=== PATIENT | female | born 1960 | race Caucasian/White ===

== ENCOUNTER 2018-05-25 16:42 | Emergency (ER) | payer SELFPAY ==
[2018-05-25 17:04] VITALS: TEMP 98.4; BMI 29.2
[2018-05-25] MEDS ORDERED: ERYTHROMYCIN 0.5% OPHTHALMIC OINTMENT 3.5 GM TUBE OS ONE (17:44)
[2018-05-25] MEDS ORDERED: ERYTHROMYCIN 0.5% OPHTHALMIC OINTMENT 3.5 GM TUBE ONE (17:48)
[2018-05-25] MEDS ORDERED: amLODIPine BESYLATE 10 MG TABLET (FP) PO ONE (17:50)
[2018-05-25] MEDS ORDERED: HYDROCHLOROTHIAZIDE 25 MG TABLET (FP) PO ONE (17:50)
--- NOTE | 2018-05-25 17:50 | PDOC ---
History of Present Illness - General Chief Complaint: Eye Problem Stated Complaint: LT EYE PROBLEM Time Seen by Provider: 05/25/18 17:20 Past History - Travel Traveled outside of the country in the last 30 days: No Close contact w/someone who was outside of country & ill: No - Past Medical History Allergies/Adverse Reactions: Allergies Allergy/AdvReac Type Severity Reaction Status Date / Time No Known Allergies Allergy Verified 08/29/12 13:36 Home Medications: Ambulatory Orders Amlodipine Besylate [Norvasc -] 10 mg PO DAILY 05/25/18 Hydrochlorothiazide [Hctz -] 50 mg PO DAILY 05/25/18 COPD: No HTN: Yes - Surgical History Cholecystectomy: Yes - Immunization History Immunization Up to Date: No - Suicide/Smoking/Psychosocial Hx Smoking Status: Yes Smoking History: Unknown if ever smoked Have you smoked in the past 12 months: No Number of Cigarettes Smoked Daily: 0 Information on smoking cessation initiated: No Hx Alcohol Use: No Drug/Substance Use Hx: No Review of Systems - Review of Systems Able to Perform ROS?: Yes Comments:: 05/25/18 18:57 CONSTITUTIONAL: Absent: fever, chills, diaphoresis, generalized weakness, malaise, loss of appetite HEENT: Present: L eye pain Absent: rhinorrhea, nasal congestion, throat pain, throat swelling, difficulty swallowing, mouth swelling, ear pain, eye pain, visual Changes CARDIOVASCULAR: Absent: chest pain, loss of consciousness, palpitations, irregular heart rate, peripheral edema RESPIRATORY: Absent: cough, shortness of breath, dyspnea with exertion, orthopnea, wheezing, stridor, hemoptysis SKIN: Absent: rash, itching, pallor NEUROLOGIC: Absent: headache, focal weakness or paresthesias, dizziness, unsteady gait, seizure, mental status changes, bladder or bowel incontinence PSYCHIATRIC: Absent: anxiety, depression, suicidal or homicidal ideation, hallucinations. Is the patient limited Yakut proficient: No *Physical Exam - Vital Signs Last Vital Signs Temp Pulse Resp BP Pulse Ox 98.4 F 70 16 199/103 H 98 05/25/18 16:57 05/25/18 16:57 05/25/18 16:57 05/25/18 16:57 05/25/18 16:57 - Physical Exam Comments: 05/25/18 18:57 GENERAL: Well developed, well nourished. Awake and alert. No acute distress. HEENT: Normocephalic, atraumatic. PERRLA, EOMI. No conjunctival pallor. Sclera are non- icteric. Moist mucous membranes. Oropharynx is clear. L eye is injected and tearing. Gross uptake of the flourscien stain over the iris and pupil NECK: Supple. Full ROM. No JVD. Carotid pulses 2+ and symmetric, without bruits. No thyromegaly. No lymphadenopathy. CARDIOVASCULAR: Regular rate and rhythm. No murmurs, rubs, or gallops. Distal pulses are 2+ and symmetric. PULMONARY: No evidence of respiratory distress. Lungs clear to auscultation bilaterally. No wheezing, rales or rhonchi. SKIN: Warm and dry. Normal capillary refill. No rashes. No jaundice. NEUROLOGICAL: Alert, awake, appropriate. Cranial nerves 2-12 intact. No deficits to light touch and temperature in face, upper extremities and lower extremities. No motor deficits in the in face, upper extremities and lower extremities. Normoreflexic in the upper and lower extremities. Normal speech. Toes are down- going bilaterally. Gait is normal without ataxia. PSYCHIATRIC: Cooperative. Good eye contact. Appropriate mood and affect. Medical Decision Making - Medical Decision Making 05/25/18 18:58 The patient is a 58-year-old female with past medical history of hypertension, off her medication for 4 months, who presents to the ER today for left eye pain starting 3 days ago. Patient states she was at work when she turned on a fan that blows hot air. She states that as soon as she turned on the fat immediately blew hot air into her left eye. She states that since then the eye has been red and painful. Denies floaters, spots, blurry vision. She does admit to photophobia. A/P: Corneal abrasion, hypertension Of note patient's triage blood pressure was 199/103 On exam the left eye is injected. Fluorescein stain with gross uptake to the iris and pupil suggestive of a corneal abrasion. Suspect that the is a first-degree burn of the eye. Erythromycin ointment applied. Home blood pressure medication of amlodipine 10 mg and hydrochlorothiazide 25 mg given Blood pressure was repeated 40 minutes after administration of medication. No change in blood pressure reading. Given elevated blood pressure, patient up triaged to the main ER for further evaluation and blood pressure checks. Endorsed to Dr. Abad in charge nurse Riccardo. *DC/Admit/Observation/Transfer Diagnosis at time of Disposition: Corneal abrasion Qualifiers: Encounter type: initial encounter Laterality: left Qualified Code(s): S05.02XA - Injury of conjunctiva and corneal abrasion without foreign body, left eye, initial encounter HTN (hypertension) Qualifiers: Hypertension type: unspecified Qualified Code(s): I10 - Essential (primary) hypertension - Discharge Dispostion Condition at time of disposition: Stable - Referrals - Patient Instructions - Post Discharge Activity
[2018-05-25] MEDS ORDERED: amLODIPine BESYLATE 5 MG TABLET (FP) ONE (17:58)
[2018-05-25] MEDS ORDERED: HYDROCHLOROTHIAZIDE 25 MG TABLET (FP) ONE (17:58)
[2018-05-25 18:54] VITALS: BP 201/102; PULSE 65
--- NOTE | 2018-05-25 19:46 | PDOC ---
History of Present Illness - General Chief Complaint: Eye Problem Stated Complaint: LT EYE PROBLEM Time Seen by Provider: 05/25/18 17:20 History Source: Patient Exam Limitations: No Limitations - History of Present Illness Initial Comments: 05/25/18 19:44 Pt is a 58yo F with PMH of HTN presenting to ED with complaints of L eye pain. Pt states she was walking and turned on a fan and the fan blew hot air into her L eye. She has had pain and slight photophobia. Pt was seen in [facility] and was found to have corneal abrasion and HTN. Pt has been without insurance for a few years and has not taken her BP meds (amlodipine and hctz) since December. Denies LANDEROS, chest pain, sob, blurry vision, changes in vision, neck pain, back pain. Pt was given BP meds in [facility]. Past History - Past Medical History Allergies/Adverse Reactions: Allergies Allergy/AdvReac Type Severity Reaction Status Date / Time No Known Allergies Allergy Verified 08/29/12 13:36 Home Medications: Ambulatory Orders Amlodipine Besylate [Norvasc -] 10 mg PO DAILY 05/25/18 Amlodipine Besylate [Norvasc -] 10 mg PO DAILY #90 tablet 05/25/18 Hydrochlorothiazide [Hctz -] 25 mg PO DAILY #90 tablet 05/25/18 Hydrochlorothiazide [Hctz -] 50 mg PO DAILY 05/25/18 COPD: No HTN: Yes - Surgical History Cholecystectomy: Yes - Immunization History Immunization Up to Date: No - Suicide/Smoking/Psychosocial Hx Smoking Status: Yes Smoking History: Unknown if ever smoked Have you smoked in the past 12 months: No Number of Cigarettes Smoked Daily: 0 Information on smoking cessation initiated: No Hx Alcohol Use: No Drug/Substance Use Hx: No Review of Systems - Review of Systems Is the patient limited [place]ican proficient: No Constitutional: No: Symptoms Reported HEENTM: Yes: See HPI, Eye Pain, Tearing. No: Blurred Vision, Recent change in vision, Double Vision Respiratory: No: Cough, Shortness of Breath Cardiac (ROS): No: Chest Pain, Lightheadedness, Palpitations, Syncope ABD/GI: No: Constipated, Diarrhea, Nausea, Vomiting, Abdominal cramping : No: Symptoms Reported Musculoskeletal: No: Symptoms Reported Integumentary: No: Symptoms Reported Neurological: No: Headache, Numbness, Tingling, Tremors *Physical Exam - Vital Signs Last Vital Signs Temp Pulse Resp BP Pulse Ox 98.4 F 65 16 201/102 H 98 05/25/18 16:57 05/25/18 18:53 05/25/18 16:57 05/25/18 18:53 05/25/18 16:57 - Physical Exam General Appearance: Yes: Nourished, Appropriately Dressed. No: Apparent Distress HEENT: positive: EOMI, DANIEL, Other (L eye erythema. OD 20/50, OS 20/70. ). negative: Photophobia, Rhinorrhea Neck: positive: Trachea midline, Supple. negative: Lymphadenopathy (R), Lymphadenopathy (L) Respiratory/Chest: positive: Lungs Clear, Normal Breath Sounds Cardiovascular: positive: Regular Rhythm, Regular Rate. negative: Edema, JVD, Murmur Vascular Pulses: Carotid (R): 2+, Carotid (L): 2+, Dorsalis-Pedis (R): 2+, Doralis-Pedis (L): 2+ Gastrointestinal/Abdominal: positive: Normal Bowel Sounds, Soft. negative: Tender Musculoskeletal: negative: CVA Tenderness Extremity: positive: Normal Capillary Refill. negative: Pedal Edema, Swelling, Calf Tenderness Integumentary: positive: Normal Color, Dry, Warm Neurologic: positive: benefits director II-XII NML intact, Fully Oriented, Alert, Normal Mood/ Affect, Normal Response, Motor Strength 5/5 ED Treatment Course - Medications Given in the ED: ED Medications Discontinued Medications Generic Name Dose Route Start Last Admin Trade Name Freq PRN Reason Stop Dose Admin Amlodipine Besylate 10 mg 05/25/18 17:50 05/25/18 18:11 Norvasc - PO 05/25/18 17:51 10 mg ONCE ONE Administration Erythromycin 1 applic 05/25/18 17:44 05/25/18 17:50 Erythromycin 0.5% Eye Ointment OS 05/25/18 17:45 1 applic ONCE ONE Administration Hydrochlorothiazide 25 mg 05/25/18 17:50 05/25/18 18:11 Hctz - PO 05/25/18 17:51 25 mg ONCE ONE Administration Medical Decision Making - Medical Decision Making 05/25/18 20:41 Pt is a 58yo F with PMH of HTN presenting to ED with complaints of L eye pain. Pt states she was walking and turned on a fan and the fan blew hot air into her L eye. She has had pain and slight photophobia. Pt was seen in [facility] and was found to have corneal abrasion and HTN. Pt has been without insurance for a few years and has not taken her BP meds (amlodipine and hctz) since December. Denies LANDEROS, chest pain, sob, blurry vision, changes in vision, neck pain, back pain. Pt was given BP meds in [facility]. Pt sent to main ED from [facility] due to elevated bp. Pt was given erythromycin ointment for eyes. Given Norvasc and HCTZ in [facility]. Rpt bp 199 systolic. Pt asymptomatic: no LANDEROS, no cp, no sob, no swelling. Pt has been off of meds since 12/2017. Asymptomatic. Does not need labs at this time. maybe elevated since december. Pt has insurance now. Rx for norvasc and hctz sent to pharmacy. Pt given gentamycin ointment for home. Given return precautions. Pt understands. *DC/Admit/Observation/Transfer Diagnosis at time of Disposition: Corneal abrasion Qualifiers: Encounter type: initial encounter Laterality: left Qualified Code(s): S05.02XA - Injury of conjunctiva and corneal abrasion without foreign body, left eye, initial encounter HTN (hypertension) Qualifiers: Hypertension type: unspecified Qualified Code(s): I10 - Essential (primary) hypertension - Discharge Dispostion Condition at time of disposition: Stable - Prescriptions Prescriptions: Amlodipine Besylate [Norvasc -] 10 mg PO DAILY #90 tablet Hydrochlorothiazide [Hctz -] 25 mg PO DAILY #90 tablet - Referrals - Patient Instructions Printed Discharge Instructions: DI for Corneal Abrasion, DI for High Blood Pressure Additional Instructions: You were seen in the emergency room today for eye pain. You have a cornea abrasion. Please wear sunglasses to protect your eyes from the sun. An antibiotic was given to you here in the emergency room. Apply it to the left eye three times per day for 5-7 days. I recommend making an appointment with an rn hemodialysis charge this week. Information has been provided. A prescription for amlodipine and hctz were sent to your pharmacy. Please take as directed. Try to make an appointment with your primary care doctor. Come back to the emergency room if eye pain gets worse, your vision gets worse, you have chest pain, you feel short of breath or if any new concerning symptom develops. Thank you - Post Discharge Activity
[2018-05-25] MEDS ORDERED: GENTAMICIN 0.3% OPHTHALMIC OINTMENT 3.5 GM/TUBE OS ONE ×2 (20:33→20:45)
[2018-05-25] MEDS ORDERED: GENTAMICIN SULFATE 0.3% OPHTHALMIC (EYE DROPS) 5ML BOTTLE ONE (20:42)
== END 2018-05-25 20:54 | disposition home or self-care (01) ==
LOC: JERFT 16:42 → JER 16:42
DX: S05.02XA Injury of conjunctiva and corneal abrasion without foreign body, left eye, initial encounter (principal); X58.XXXA Exposure to other specified factors, initial encounter; Y93.89 Activity, other specified; Y92.69 Other specified industrial and construction area as the place of occurrence of the external cause; Y99.0 Civilian activity done for income or pay; I10 Essential (primary) hypertension
CPT/HCPCS: 99283-25